=== PATIENT | female | born 1935 ===

== ENCOUNTER 2022-09-26 12:55 | Outpatient (CLI) | payer MEDICARE ==
[~2022-09-26] VITALS: Ht 162.7 cm; Wt 95.5 kg
[2022-09-26 13:47] LABS: HEMOGLOBIN 11.5 g/dl (12.5-16.0); MEAN CELL VOLUME 80 fl (80.0-100.0); MEAN CORPUSCULAR HEMOGLOBIN 26 pg (27-31); MEAN CORPUSCULAR HGB CONC 33 g/dl (33.0-37.0); MEAN PLATELET VOLUME 9.2 fl (7.4-10.4); PLATELET COUNT 218 K/mm3 (130-400); RED BLOOD COUNT 4.39 M/mm3 (4.10-5.30); REDCELL DISTRIBUTION WIDTH-CV 16.6 % (11.5-14.5)
[2022-09-26] MEDS ORDERED: PLAVIX 75MG TAB75 MG PO (13:50)
[2022-09-26] MEDS ORDERED: COREG 6.256.25 MG/TA PO (13:50)
[2022-09-26] MEDS ORDERED: LASIX 20MG TABL20 MG PO (13:51)
[2022-09-26] MEDS ORDERED: NEURONTIN300 MG/CAP PO (13:52)
[2022-09-26] MEDS ORDERED: HCTZ 25MG TAB25 MG PO (13:52)
[2022-09-26] MEDS ORDERED: COZAAR 25MG25 MG/TAB PO (13:53)
[2022-09-26] MEDS ORDERED: LUTEIN20 M1 PO (13:53)
[2022-09-26] MEDS ORDERED: CENTRUM SILVER1 CTB PO (13:55)
[2022-09-26] MEDS ORDERED: CRESTOR5 MG PO (13:56)
[2022-09-26] MEDS ORDERED: COUMADIN 1MG1 MG/TAB PO (13:57)
[2022-09-26] MEDS ORDERED: VITAMIN D250 MCG PO (13:58)
[2022-09-26 14:00] VITALS: BP 144/83; PULSE 66; TEMP 97.4
[2022-09-26 14:10] LABS: CALCIUM 9.3 mg/dL (8.4-10.2); CREATININE, serum 0.99 mg/dL (0.57-1.11); POTASSIUM 4.4 mmol/L (3.5-4.5)
[2022-09-26 14:13] LABS: INR 1.7 (0.8-3.0); PROTHROMBIN TIME 19.6 SECONDS (9.7-12.8)
[2022-09-26 15:15] VITALS: BP 156/71; PULSE 71
--- NOTE | 2022-09-26 15:15 | NUR ---
report from Gracia COOK, pt rests in bed, awake and alert, family member in room. no c/o, takes sprite, will con't to monitor
[2022-09-26 15:30] VITALS: BP 132/84; PULSE 75
[2022-09-26 15:45] VITALS: BP 132/84; PULSE 75
[2022-09-26 16:00] VITALS: BP 169/95; PULSE 76
--- NOTE | 2022-09-26 16:00 | NUR ---
pt up to b/r with standby assist.
[2022-09-26 16:30] VITALS: BP 150/80; PULSE 78
--- NOTE | 2022-09-26 16:30 | NUR ---
pt up and dressed, iv d'cd intact, reviewed moderate sedation inst. with pt on activity level and precautions, waiting on discharge from physician
--- NOTE | 2022-09-26 17:05 | NUR ---
discharge inst. given to pt on followup appt and no med changes, discharged via w/c to car with family
== END 2022-09-26 17:10 | disposition home or self-care (01) ==
LOC: COL.RAD 12:55
PROVIDERS: Internal Medicine Cardiovascular Disease
DX: I34.0 Nonrheumatic mitral (valve) insufficiency (principal); I35.1 Nonrheumatic aortic (valve) insufficiency
CPT/HCPCS: J2704